=== PATIENT | female | born 1955 | race Caucasian/White ===

== ENCOUNTER 2016-08-14 09:48 | Outpatient (RCR) | payer BC, OTHER ==
[2015-07-21 16:35] VITALS: BP 114/43
[~2016-08-14 09:48] MED LIST: EC-NAPROSYN500 MG PO; HCTZ 25MG25 MG PO; LISINOPRIL10 MG PO; MIRTAZAPINE15 MG PO; NORCO 325 MG-51 TAB PO; OMEPRAZOLE40 MG PO
== END 2016-10-31 07:44 | disposition home or self-care (01) ==
LOC: PT 09:48
DX: M75.21 Bicipital tendinitis, right shoulder (principal)